=== PATIENT | female | born 1990 | race Caucasian/White ===

== ENCOUNTER 2017-07-24 09:58 | Emergency (ER) | payer MEDICAID, SELFPAY ==
[2017-07-24 09:59] VITALS: BP 129/78; PULSE 110; RESP 18; TEMP 36.8; O2SAT 99; BMI 27.3
--- NOTE | 2017-07-24 10:23 | ED.DCSUM_ITS ---
- ER Visit Summary Date of Service: 07/24/17 Chief Complaint: Left facial lesion and back pain History of Present Illness: The patient is a 27 F who noted a pimple to her left side of her face 3 days ago. Patient states she tried to pop it. She states the area keeps enlarging. She has been able to get some watery drainage from the area. Also complaining of pain to her left shoulder blade area for the past 3 days. Pain is worse with deep breath and movement. Physical Examination: Vital signs are significant for heart rate of 110, otherwise unremarkable. Patient sitting upright in bed no acute distress. She is nontoxic appearing. Head neck examination reveals a 4 x 3 cm cutaneous abscess of the left maxilla just anterior to her ear. There is a scabbed opening appreciated. There is no surrounding cellulitis. Heart is regular rate and rhythm. Lung sounds are clear. Abdomen is soft nontender. Back examination reveals mild tenderness on the medial left scapula. Extremity examination reveals strong distal pulses and normal range of motion. Test Results: [] Emergency Department Course and Treatment: She will be treated with anti- inflammatories along with Bactrim and Keflex. She was instructed to use warm compresses. Patient is to return for worsening symptoms in spite of antibiotics. Treatment Plan: [] Disposition: Discharge Impression: 1. Cutaneous abscess left face 2. Musculoskeletal back pain This note was generated with [employer] dictation software. It may contain incorrect words, spelling, and punctuation that were not noted in review of the chart prior to signing ED Disposition - Plan for ED Patient: Chief Complaint: Wound Check Referrals: Eb Mello [Primary Care Provider] -
--- NOTE | 2017-07-24 10:23 | ED.DEP ---
ED Disposition - Plan for ED Patient: Disposition: Home or Assisted Living Chief Complaint: Wound Check Instructions: ED Staph Infec Abx Tx Only Prescriptions: Cephalexin [Keflex] 500 mg PO Q6 #40 capsule Naproxen [Naprosyn] 500 mg PO BID PRN #20 tablet Smz/Tmp Ds [Bactrim Ds] 1 tablet PO BID #20 tablet Referrals: Eb Mello [Primary Care Provider] -
== END 2017-07-24 10:38 | disposition home or self-care (01) ==
PROVIDERS: Emergency Provider Emergency Medicine; Family Provider Family Medicine; PCP Family Medicine
DX: L02.01 Cutaneous abscess of face (principal); B96.89 Other specified bacterial agents as the cause of diseases classified elsewhere; M25.512 Pain in left shoulder; Z72.0 Tobacco use
CPT/HCPCS: 99282

== ENCOUNTER 2017-07-27 18:52 | Emergency (ER) | payer MEDICAID, SELFPAY ==
[2017-07-27 18:52] VITALS: BP 132/80; PULSE 105; RESP 18; TEMP 36.8; O2SAT 97; BMI 27.0
--- NOTE | 2017-07-27 19:19 | ED.VISSUMM ---
- ER Visit Summary Date of Service: 07/27/17 Chief Complaint: Facial abscess History of Present Illness: The patient is a 27 F who was seen here on the for left facial abscess. She was started on Bactrim, Keflex, warm compresses. Patient states the abscess did drain. She now has a swollen area superior to the initial abscess and right in front of her ear. She is concerned the infection may be spreading. She has had no fevers or chills and otherwise feels well. Physical Examination: Vital signs are remarkable for heart rate 105, otherwise unremarkable. Patient sitting upright in bed no acute distress. She is nontoxic appearing. Head neck examination reveals a healing cutaneous abscess of the left maxilla. Superior to this there is an area of firmness just anterior to the left ear. There is no sign of cellulitis. TM is clear. Heart is regular rate and rhythm. Lung sounds are clear. Test Results: Emergency Department Course and Treatment: Let was applied to the preauricular area. After 20 minutes 18-gauge needle was used to attend aspirate. There is no return of pus. I feel that this swollen area is her pre-ocular lymph node and there is no extension of the infection. Patient will continue her antibiotics. Treatment Plan: [] Disposition: Discharge Impression: 1. Preauricular lymph node enlargement 2. Healing facial abscess This note was generated with [employer] dictation software. It may contain incorrect words, spelling, and punctuation that were not noted in review of the chart prior to signing ED Disposition - Plan for ED Patient: Chief Complaint: Abscess Referrals: Eb Mello [Primary Care Provider] -
[2017-07-27] MEDS: Lidocaine/Epi/Tetracaine 50 ML 1 APPLIC TOPICAL (19:22)
--- NOTE | 2017-07-27 19:50 | ED.DEP ---
ED Disposition - Plan for ED Patient: Disposition: Home or Assisted Living Chief Complaint: Abscess Instructions: ED Staph Infec Abx Tx Only Referrals: Eb Mello [Primary Care Provider] - Additional Instructions: The swollen area in front of the ear represents an enlarged lymph node from your healing infection. There is no evidence of spread of infection. Continue full antibiotic course as discussed.
== END 2017-07-27 20:00 | disposition home or self-care (01) ==
PROVIDERS: Emergency Provider Emergency Medicine; Family Provider Family Medicine; PCP Family Medicine
DX: R59.0 Localized enlarged lymph nodes (principal); L02.01 Cutaneous abscess of face; B96.89 Other specified bacterial agents as the cause of diseases classified elsewhere; Z72.0 Tobacco use
CPT/HCPCS: 38300; 99282

== ENCOUNTER 2018-01-01 21:14 | Emergency (ER) | payer MEDICAID, SELFPAY ==
[2018-01-01 21:15] VITALS: BP 128/72; PULSE 85; RESP 16; TEMP 36.9; O2SAT 97; BMI 28.8
--- NOTE | 2018-01-01 23:02 | ED.VISSUMM ---
- ER Visit Summary Date of Service: 01/01/18 Chief Complaint: Acute right eye pain with blurred vision temporal visual field right eye only History of Present Illness: The patient is a 27 F who presents with intermittent severe right eye pain that she localizes in the proximity of the medial canthus. She denies any double vision or loss of vision. She reports blurred vision temporal visual field in the right eye only. She denies nausea or vomiting. She denies headache. She denies rhinorrhea, congestion, postnasal drainage. Denies sore throat. She denies any auditory symptoms. She denies trouble with speech or swallowing. There is no history of trauma. The pain is described as sharp. Physical Examination: Visual acuity is 2025 right eye 20/20 left eye 20/20 both eyes. There is no abnormality the lid, lash or lack of colitis. Pupils are equal round reactive. Extraocular muscles are intact. Sclerae anicteric. Conjunctive is not injected. Funduscopic exam reveals normal cup-to-disc ratio. There is no papilledema. There is no abnormality of the vessels. No exudate was noted. There is no hyperesthesia the infra orbital nerve. There is no evidence of preseptal cellulitis. There is no preauricular lymphadenopathy. Nares patent no discharge. No frontal, ethmoid or maxillary sinus tenderness. No facial asymmetry. Test Results: None Emergency Department Course and Treatment: Case was discussed with Dr. Lewis will see patient in the morning for formal ocular exam Treatment Plan: Outpatient ophthalmology follow-up Disposition: Discharged to home and see composition stone applicator in morning Impression: 1. Intermittent right eye pain unknown etiology 2. Blurred vision temporal field right eye only unknown etiology This note was generated with [employer] dictation software. It may contain incorrect words, spelling, and punctuation that were not noted in review of the chart prior to signing ED Disposition - Plan for ED Patient: Disposition: Home or Assisted Living Chief Complaint: Eye Problem Instructions: ED Blurred Vision Referrals: Eb Mello [Primary Care Provider] - Jung Lewis MD [STAFF PHYSICIAN] - 1 Day for another exam Additional Instructions: Call Dr. Lewis office at 8 AM tomorrow morning to be seen tomorrow
--- NOTE | 2018-01-01 23:05 | ED.DCSUM_ITS ---
- ER Visit Summary Date of Service: 01/01/18 Chief Complaint: Acute right eye pain with blurred vision temporal visual field right eye only History of Present Illness: The patient is a 27 F who presents with intermittent severe right eye pain that she localizes in the proximity of the medial canthus. She denies any double vision or loss of vision. She reports blurred vision temporal visual field in the right eye only. She denies nausea or vomiting. She denies headache. She denies rhinorrhea, congestion, postnasal drainage. Denies sore throat. She denies any auditory symptoms. She denies trouble with speech or swallowing. There is no history of trauma. The pain is described as sharp. Physical Examination: Visual acuity is 2025 right eye 20/20 left eye 20/20 both eyes. There is no abnormality the lid, lash or lack of colitis. Pupils are equal round reactive. Extraocular muscles are intact. Sclerae anicteric. Conjunctive is not injected. Funduscopic exam reveals normal cup-to-disc ratio. There is no papilledema. There is no abnormality of the vessels. No exudate was noted. There is no hyperesthesia the infra orbital nerve. There is no evidence of preseptal cellulitis. There is no preauricular lymphadenopathy. Nares patent no discharge. No frontal, ethmoid or maxillary sinus tenderness. No facial asymmetry. Test Results: None Emergency Department Course and Treatment: Case was discussed with Dr. Lewis will see patient in the morning for formal ocular exam Treatment Plan: Outpatient ophthalmology follow-up Disposition: Discharged to home and see shift production supervisor in morning Impression: 1. Intermittent right eye pain unknown etiology 2. Blurred vision temporal field right eye only unknown etiology This note was generated with [employer] dictation software. It may contain incorrect words, spelling, and punctuation that were not noted in review of the chart prior to signing ED Disposition - Plan for ED Patient: Disposition: Home or Assisted Living Chief Complaint: Eye Problem Instructions: ED Blurred Vision Referrals: Eb Mello [Primary Care Provider] - Jung Lewis MD [STAFF PHYSICIAN] - 1 Day for another exam Additional Instructions: Call Dr. Lewis office at 8 AM tomorrow morning to be seen tomorrow
[2018-01-01 23:16] VITALS: BP 125/66; PULSE 75; RESP 16; O2SAT 96
== END 2018-01-01 23:16 | disposition home or self-care (01) ==
PROVIDERS: Emergency Provider Emergency Medicine; Family Provider Family Medicine; PCP Family Medicine
DX: H57.11 Ocular pain, right eye (principal); H53.8 Other visual disturbances; Z72.0 Tobacco use
CPT/HCPCS: 99283

== ENCOUNTER 2018-06-29 13:09 | Emergency (ER) | payer MEDICAID, SELFPAY ==
[2018-06-29 13:10] VITALS: BP 121/81; PULSE 94; RESP 16; TEMP 36.5; O2SAT 94; BMI 29.1
--- NOTE | 2018-06-29 14:34 | ED.DCSUM_ITS ---
- ER Visit Summary Date of Service: 06/29/18 Chief Complaint: Upper respiratory congestion History of Present Illness: The patient is a 28 F who presents with cough, fever, and sore throat that has been getting worse over the past 4 days. Patient states she has pressure over her frontal area. Patient states this is gradually getting worse. Patient admits to subjective fevers at home. She admits to a sore throat. Patient also admits to pain in her back with coughing. Patient denies any sputum production. Patient admits to some shortness of breath. Physical Examination: Vital signs are stable. Patient is afebrile. Patient is in no acute distress. Pupils are equal, round, and reactive to light bilaterally. Extraocular muscles are intact. Tympanic membranes are clear bilateral. Nasal mucosa is congested. Oral mucosa is pink and moist. There is some mild posterior oropharyngeal erythema. There are no exudates noted. Neck is supple. Trachea is midline. There is no JVD or lymphadenopathy noted. Heart was regular rate and rhythm. Lungs are clear and equal bilaterally. Cranial nerves II through XII are intact. There are no focal motor or sensory deficits noted. Emergency Department Course and Treatment: Patient was advised that this is most likely a viral upper respiratory infection. Patient was given a prescription for Claritin-D. Patient was instructed to follow-up with her primary care physician in 5-7 days. Patient was given a note for work to be off today and tomorrow. Patient was instructed to drink plenty of fluids. Patient understood and was agreeable with the plan. All questions were answered. Disposition: Discharge home Impression: Viral upper respiratory infection This note was generated with [employer] dictation software. It may contain incorrect words, spelling, and punctuation that were not noted in review of the chart prior to signing ED Disposition - Plan for ED Patient: Disposition: Home or Assisted Living Diagnosis: Viral upper respiratory tract infection with cough Instructions: ED Upper Resp Infec No Abx Tx Prescriptions: Loratadine/Pseudoephedrine [Claritin-D 24 Hour Tablet] 1 ea PO DAILY PRN PRN #[id number] PRN Reason: Congestion Referrals: Eb Mello [Primary Care Provider] - 5-7 Days
== END 2018-06-29 14:43 | disposition home or self-care (01) ==
PROVIDERS: Emergency Provider Emergency Medicine; Family Provider Family Medicine; PCP Family Medicine
DX: J06.9 Acute upper respiratory infection, unspecified (principal); Z72.0 Tobacco use
CPT/HCPCS: 99282

== ENCOUNTER → 2018-09-09 11:36 | Outpatient (CLI) | payer MEDICAID, SELFPAY ==
[2018-09-12 12:30] LABS: HPV Reflexed? NOT INDICATED
== END ==
PROVIDERS: Family Provider Family Medicine; PCP Family Medicine; Referring Provider Obstetrics & Gynecology; Visit Provider Obstetrics & Gynecology
DX: Z12.4 Encounter for screening for malignant neoplasm of cervix (principal)
CPT/HCPCS: 88175; G0145

== ENCOUNTER → 2022-01-09 | Outpatient (CLI) | payer MEDICAID, SELFPAY ==
[2022-01-14 12:57] LABS: HPV APTIMA, High Risk Negative (Negative)
== END | disposition home or self-care (01) ==
LOC: LABSPEC 11:28
PROVIDERS: PCP Family Medicine; Visit Provider Student in an Organized Health Care Education/Training Program
DX: Z12.4 Encounter for screening for malignant neoplasm of cervix (principal)
CPT/HCPCS: 87624; 88175; G0145

== ENCOUNTER → 2022-06-01 | Outpatient (CLI) | payer MEDICAID, SELFPAY ==
[2022-06-01 16:04] LABS: Absolute Lymphocyte Count 3.19 X10^3/uL (0.83-4.51); Basophil# 0.03 X10^3/uL; Basophil% 0.3 % (0-1); Eosinophil# 0.03 X10^3/uL; Eosinophils% 0.3 % (0-5); Hematocrit 41.6 % (37-47); Hemoglobin 14.1 g/dL (12.0-15.0); Lymphocyte # 3.19 X10^3/ul (0.83-4.51); Lymphocyte % 26.8 % (19-41); Mean Corp Hgb Conc 33.9 g/dL (32-36); Mean Corpuscular Hgb 31.5 pg (27.0-32.0); Mean Corpuscular Volume 93.1 fL (81-99); Mean Platelet Vol. 9.7 fl (6.2-12.0); Monocyte# 0.66 X10^3/uL; Monocyte% 5.5 % (0-10); NRBC Flagged by Analyzer 0 % (0-5); Neutrophil # 7.97 X10^3/uL (2.7-7.7); Neutrophil % 66.8 % (47-70); Platelet Count 253 K/mm3 (150-450); RBC Distribution Width CV 12.5 % (11.6-14.6); RBC Distribution Width SD 43.1 fl (35.1-43.9); Red Blood Count 4.47 M/mm3 (4.2-5.4); White Blood Count 11.9 K/mm3 (4.4-11.0)
[2022-06-01 18:28] LABS: HIV - WCH Non-Reactive (Nonreactive); Hepatitis B Surface Antigen Non-Reactive (Nonreactive); Hepatitis C Antibody Non-Reactive (Nonreactive); Rubella IgG Reactive (Nonreactive); Syphilis Antibodies Non-reactive
[2022-06-03 09:12] LABS: V-Zoster IgG (Immunity) 958 index (Immune >165)
== END | disposition home or self-care (01) ==
LOC: WOBLAB 14:59
PROVIDERS: PCP Family Medicine; Visit Provider Obstetrics & Gynecology
DX: Z34.81 Encounter for supervision of other normal pregnancy, first trimester (principal)
CPT/HCPCS: 36415; 85025; 86703; 86762; 86780; 86787; 86803; 87086; 87088; 87340

== ENCOUNTER → 2022-10-17 | Outpatient (CLI) | payer MEDICAID, SELFPAY ==
[2022-10-17 13:57] LABS: Absolute Lymphocyte Count 3.02 X10^3/uL (0.83-4.51); Absolute Neutrophil Count 8.2 X10^3/uL (2.0-7.7); Basophil# 0.06 X10^3/uL; Basophil% 0.5 % (0-1); Eosinophil# 0.08 X10^3/uL; Eosinophils% 0.7 % (0-5); Hematocrit 36.9 % (37-47); Hemoglobin 12.2 g/dL (12.0-15.0); Lymphocyte # 3.02 X10^3/ul (0.83-4.51); Mean Corp Hgb Conc 33.1 g/dL (32-36); Mean Corpuscular Hgb 32.4 pg (27.0-32.0); Mean Corpuscular Volume 97.9 fL (81-99); Mean Platelet Vol. 9.3 fl (6.2-12.0); Monocyte# 0.66 X10^3/uL; Monocyte% 5.5 % (0-10); NRBC Flagged by Analyzer 0 % (0-5); Neutrophil # 8.16 X10^3/uL (2.7-7.7); Neutrophil % 67.4 % (47-70); Platelet Count 260 K/mm3 (150-450); RBC Distribution Width CV 12.8 % (11.6-14.6); RBC Distribution Width SD 46.1 fl (35.1-43.9); Red Blood Count 3.77 M/mm3 (4.2-5.4); White Blood Count 12.1 K/mm3 (4.4-11.0)
[2022-10-17 14:03] LABS: Glucose Challenge Gest 1H 50g 126 mg/dL (70-140)
[2022-10-17 14:31] LABS: Syphilis Antibodies Non-reactive
== END | disposition home or self-care (01) ==
LOC: WOBLAB 13:15
PROVIDERS: PCP Family Medicine; Visit Provider Nurse Practitioner Women's Health
DX: Z34.82 Encounter for supervision of other normal pregnancy, second trimester (principal)
CPT/HCPCS: 36415; 82950; 85025; 86780

== ENCOUNTER → 2022-12-19 | Outpatient (CLI) | payer MEDICAID, SELFPAY ==
[2022-12-19 13:51] LABS: Hematocrit 36.6 % (37-47); Hemoglobin 11.8 g/dL (12.0-15.0); Mean Corp Hgb Conc 32.2 g/dL (32-36); Mean Corpuscular Hgb 31.4 pg (27.0-32.0); Mean Corpuscular Volume 97.3 fL (81-99); Mean Platelet Vol. 9.3 fl (6.2-12.0); Platelet Count 253 K/mm3 (150-450); RBC Distribution Width SD 45.9 fl (35.1-43.9); Red Blood Count 3.76 M/mm3 (4.2-5.4)
== END | disposition home or self-care (01) ==
LOC: WOBLAB 13:27
PROVIDERS: PCP Family Medicine; Visit Provider Student in an Organized Health Care Education/Training Program
DX: Z34.83 Encounter for supervision of other normal pregnancy, third trimester (principal)
CPT/HCPCS: 36415; 85027; 87081

== ENCOUNTER 2023-01-15 05:30 | Inpatient (IN) | payer MEDICAID, SELFPAY ==
[2023-01-15] VITALS (19 sets, daily range): BP systolic 101–142; BP diastolic 47–70; PULSE 75–104; RESP 12–19; TEMP 36.4–36.8; O2SAT 95–98; BMI 36.6
[2023-01-15] MEDS: Lactated Ringers 1,000 ML 999 ML IV (06:20)
[2023-01-15 06:30] LABS: Absolute Neutrophil Count 7.4 X10^3/uL (2.0-7.7); Basophil# 0.05 X10^3/uL; Basophil% 0.4 % (0-1); Eosinophil# 0.08 X10^3/uL; Eosinophils% 0.7 % (0-5); Hematocrit 34.2 % (37-47); Lymphocyte % 30.9 % (19-41); Mean Corp Hgb Conc 32.2 g/dL (32-36); Mean Corpuscular Volume 99.4 fL (81-99); Mean Platelet Vol. 9.1 fl (6.2-12.0); Monocyte# 0.82 X10^3/uL; Monocyte% 6.7 % (0-10); NRBC Flagged by Analyzer 0 % (0-5); Neutrophil # 7.44 X10^3/uL (2.7-7.7); Neutrophil % 60.5 % (47-70); Platelet Count 252 K/mm3 (150-450); RBC Distribution Width CV 13.2 % (11.6-14.6); RBC Distribution Width SD 47.7 fl (35.1-43.9); Red Blood Count 3.44 M/mm3 (4.2-5.4); White Blood Count 12.3 K/mm3 (4.4-11.0)
[2023-01-15] MEDS: Sodium Citrate/Citric Acid 30 ML UDC PO (06:32)
[2023-01-15] MEDS: Acetaminophen 500 MG Tablet 1000 MG PO ×4 (06:32→23:53)
[2023-01-15] MEDS: Ondansetron 4 MG/2 ML Vial IV (07:18)
[2023-01-15] MEDS: Cefazolin 2 GM in 0.9% Normal Saline (100mL Bag) 100 ML IV (07:26)
--- NOTE | 2023-01-15 07:30 | HP.PCM.OB_ITS ---
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 Home Medications docosahexaenoic acid 200 mg capsule ( DHA) mg PO 01/02/23 [History Last Taken Unknown] Allergy/AdvReac Type Severity Reaction Status Date / Time mushroom Allergy Swelling Verified 01/15/23 06:08 Family History Father Diabetes Grandfather Diabetes Grandmother Diabetes Mother Aneurysm Colon cancer Surgical History Previous section S/P cholecystectomy S/P left knee surgery Status post colposcopy Surgical abdomen Social History Smoking Status: Current every day smoker alcohol intake: never substance use type: does not use caffeine: Yes what type of physical activity do you participate in: none seatbelt use: always do you feel safe at home: Yes additional social history: Boyfriend-Prosper History 2 Elective abortions Hx Para 1 Spontaneous abortions Hx # Term Pregnancies Ectopic pregnancies Hx # Pregnancies Multiple births # of living children 1 Past Pregnancies Del. Date Name GA/Weeks Outcome Route Bth Weight Gen Labor Lgth Anesthesia Del Locatn Provider FOB 08/29/08 Lily 39 live - full term 7lbs 13oz Male spinal [facility] Dr. Joyce Mittal Delivery Date: 08/29/08 Last Updated by: Melody Corral No issues during , went into WP due to not feeling well, baby HR dropped while on monitor had emergency csection. had ulcer rupture Visit Details Expected Delivery Route/Plan for repeat section Plans Covid status:declined Flu vaccine: declined Tdap vaccine: declined Rhogam: na LARC form signed: declined movement and labor precautions reviewed. Problem list reviewed and updated with the most current plan of care details and appropriate orders placed. Relevant counseling for the gestational age provided. Continue routine care and follow up unless otherwise noted in visit notes/problem list details OB Flowsheet Initial Weight: Not Recorded Date -?-?-?-?-?-?-?-?-?-?-?-?- EGA Weight BP Urine Prot -?-?-?-?-?-?-?-?-?-?-?-?- Glucose FHR FuHt Pres Dilation -?-?-?-?-?-?-?-?-?-?-?-?- Effaced St Visit Note 01/02/23 -?-?-?-?-?-?-?-?-?-?-?-?- 37w 1d 203 lb 8 oz 129/78 Nega tive -?-?-?-?-?-?-?-?-?-?-?-?- Negative 140 -?-?-?-?-?-?-?-?-?-?-?-?- JV- new transfer from [facility]. has h/o prior section in 2008 for fitl. h/o ruptured stomach ulcer (avoid nsaids) rpt section on saturday01/15/23 01/09/23 -?-?-?-?-?-?-?-?-?-?-?-?- 38w 1d 204 lb 2 oz 116/68 Nega tive -?-?-?--?-?-?-?-?-?-?-?-?- Negative 140 -?-?-?-?-?-?-?-?-?-?-?-?- Sm- no vb lof go od fm no regular ctx ROS Constitutional Constitutional: Denies change in weight, fatigue, fever(s), headache(s), poor appetite or weakness Eyes Eyes: Denies blurry vision, change in vision, seeing flashes or spots in vision ENT HEENT: Denies dizziness, headache(s), loss taste/smell or sore throat Cardiovascular Cardiovascular: Denies chest pain, dizziness, dyspnea, irregular heart rhythm, leg edema, palpitations, rapid heart rate or vomiting Respiratory/Chest Respiratory/Chest: Denies chest tightness, cough, dyspnea or breast pain Gastrointestinal Gastrointestinal: Denies abdominal pain, anorexia, constipation, cramping, diarrhea, hemorrhoids, vomiting or weight changes Genitourinary Genitourinary: Denies dysuria, flank pain, genital lesions, genital pain, urinary frequency or urinary urgency Musculoskeletal Musculoskeletal: Denies back pain, difficulty walking, joint pain, limited range of motion, muscle cramps or numbness Integumentary Integumentary: Denies lesions or unusual bruising Neurologic Neurologic: Denies abnormal movements, abnormal speech, dizziness, numbness, seizure-like activity or syncope Psychiatric Psychiatric: Denies anxiety, behavioral changes, change in appetite, change in libido, cognitive impairment, confusion, depression, difficulty concentrating, hallucinations or suicidal thoughts Endocrine Endocrinology: Denies excessive sweating, polydipsia or polyuria Hematologic/Lymphatic Hematologic/Lymphatic: Denies easy bleeding, easy bruising or lymphadenopathy Allergic/Immunologic Allergic/Immunologic: Denies itchy eyes, lip swelling, seasonal rhinorrhea, rhinitis, throat swelling, tongue swelling, eczemia, wheezing or asthma Vital Signs Vital Signs Vital Signs: 01/15/23 05:50 01/15/23 05:50 01/15/23 05:54 Pulse Rate 95 104 H Pulse Ox 97 01/15/23 05:54 01/15/23 06:00 01/15/23 06:00 Pulse Rate 94 Pulse Ox 97 97 Weight Weight: 206 lb 9.6 oz Body Mass Index (BMI) 36.6 Physical Exam Const alert, oriented x3, no apparent distress and healthy appearing General Appearance: cooperative; Negative for anxious HEENT normocephalic Face and Sinus: normal facial exam Eyes EOMs intact bilaterally and no scleral icterus General Eye: normal appearance of both eyes Neck full ROM and supple Lymph Lymphatic: no lymphadenopathy noted Chest Chest: abnormal inspection of the chest Resp normal respiratory effort Effort and Inspection: able to speak in complete sentences Cardio regular rate GI soft to palpation and non-tender Inspection: gravid Palpation: soft; Negative for tender Back/Spine no CVA tenderness Extremity normal to inspection, full ROM and no clubbing, cyanosis or edema General Extremity: Negative for calf tenderness or edema Skin Lesions: no lesions Rashes: no rashes Psych mental status grossly normal Labs Labs Labs: Blood Type O POSITIVE Antibody Screen Pending Hct 34.2 % (37-47) L Hgb 11.0 g/dL (12.0-15.0) L Syphilis Total Ab Non-reactive VZV IgG Antibody 958 index (Immune >165) Rubella IgG Antibody Reactive (Nonreactive) Hep Bs Antigen Non-Reactive (Nonreactive) HIV 1&2 Antibody Non-Reactive (Nonreactive) Glucose 1 Hr 50 gm 126 mg/dL (70-140) Assessment & Plan (1) Supervision of high risk in third trimester: COMMENT: PRR Girl-Mellisa Bautista. Boyfriend-Prosper GBS negative normal GCT (2) Previous section: COMMENT: 2008, RLTCS scheduled for 01/15 with JV (3) : QUALIFIERS: Weeks of gestation: 38 weeks Qualified Code(s): Z3A.38 - 38 weeks gestation of PLAN: Plan plan for eras rpt section
--- NOTE | 2023-01-15 08:16 | OP.PCM_ITS ---
Assessment & Plan (1) Supervision of high risk in third trimester: COMMENT: PRR Girl-Mellisa Bautista. Boyfriend-Prosper GBS negative normal GCT (2) Previous section: COMMENT: 2008, RLTCS scheduled for 01/15 with KatV (3) : QUALIFIERS: Weeks of gestation: 38 weeks Qualified Code(s): Z3A.38 - 38 weeks gestation of Maternal Data Information SACHI Calculator Estimated Delivery Date Method Current WG Current Estimate 01/22/23 LMP (Certain) 39w 0d Final SACHI Source: LMP Details Operative Information Date of Procedure: 01/15/23 Pre-Operative Diagnosis: 32 y/o @ 39 weeks 0 days, scheduled repeat section Post-Operative Diagnosis: 32 y/o @ 39 weeks 0 days, scheduled repeat section Classification: Scheduled Procedure Type: low transverse tail sawyer #1: Olaf Monsalve tail sawyer #2: Ml Harrington Type of Anesthesia: General Antibiotic Given: Ancef 2 grams IV x1 Estimated Blood Loss: 400cc Findings Description of Procedure: The patient was brought to the operating room, spinal anesthesia was found to be adequate. She was prepped and draped in the normal sterile fashion and was placed in a dorsal supine position with a leftward tilt. Pfannenstiel skin incision was made with a scalpel and carried through to the underlying layers. The fascia was nicked in the midline and extended laterally using Johnson scissors. The anterior aspect of the fascia was grasped with Samaria clamps and the underlying rectus muscles dissected off using the Metzenbaum scissors. The inferior aspect the fascia was also grasped with Samaria clamps and the underlying rectus muscle dissected off with the Metzenbaum scissors. The rectus muscles were in the midline. Peritoneum was entered sharply. The uterus was identified and a bladder blade was inserted into the abdomen. Bladder flap was created off the uterus using Metzenbaum scissors. A transverse incision was made with a scalpel and extended laterally manually. The 's head was grasped with the help of my project construction assistant manager and fundal pressure the infant was delivered through the uterine incision without difficulty. The mouth and nares were bulb suctioned. After a 30 second delay the cord was clamped and cut. The end was handed off to the awaiting emergency medicine specialist for routine assessment. Placenta was delivered manually without difficulty. The uterus was exteriorized and cleared of all clots and debris. Incision was closed with an 0 Vicryl suture in a running locked fashion. Second layer of 1-0 monocryl suture was used in imbricating manner to create excellent closure and hemostasis. The uterus was returned to the abdomen. The gutters were cleared of all clots and debris. The peritoneum was closed in a pursestring pattern using a 3-0 Vicryl suture. This muscle was reapproximated with a 3-0 Vicryl. The fascia was closed with an stratafix suture. Subcutaneous tissue layer was closed using a plain gut suture. The skin was closed with a 4-0 Monocryl subcuticular stitch. The skin was also sealed with surgical glue. The patient tolerated the procedure well sponge lap and needle counts were correct at each tissue closure plane and the patient is now being brought to the recovery room in stable condition Presentation: Positive for Vertex Amniotic Membrane Rupture Type: Artificial Amniotic Fluid Description: Clear Placental Delivery Description: Manual Removal Placenta Disposition: [facility] Cord Vessel Description: 3 Vessels Cord Entanglement: None Infant A Gender: Female (1 minute): 9 (5 minute): 9 Delayed Cord Clamping: Yes Complications Risks of Surgery Discussed w/Patient: Bleeding, Anesthesia Risks, Infection, Need for Future C-Sections and Injury to surrounding structure(s) including bowel and bladder Multi Select Codes Urinary/Genital Urinary/Genital CPT Codes: 02032 Delivery [facility]
--- NOTE | 2023-01-15 08:27 | DCINST_ITS ---
Discharge Instructions Diet Discharge Diet: No restrictions Activity Discharge Activity: May Not Drive (for 2 weeks or while taking narcotic pain medications.), May Shower and May Take a Tub Bath (in 7 days.) May resume sexual activity in: 4-6 weeks Weight Bearing Status: Full weight bearing Lifting Restrictions: 20 pounds Dressing / Incision Call your doctor if your incision/area has: Continuous Slow Oozing, Sudden Increased Bleeding, Increased Pain/ Swelling, Increased Redness and Foul Smelling Discharge Call your doctor if you observe: Fever of 101 or Higher and Using more than 1 pad per hour Suture Line Care: Avoid Pulling/Pushing and Avoid Pinching/Bending Cleanse incision/area with: Soap & Water and Keep Dressing Clean & Dry Follow Up Care Please Follow Up With: Caitlyn Zavaleta DO When: Call [phone] to make an appointment for an incision check in 1-2 weeks. Test Results: Test results from this visit will be discussed in further detail at your follow- up appointment, if applicable. Discharge Plan Admission Admit Date/Time: 01/15/23 05:30 Primary Reason for Your Visit: section Attending Provider: Caitlyn Zavaleta Primary Care Provider: Eb Mello Discharge Orders/Prescriptions Prescriptions: New naproxen 500 mg tablet 500 mg PO BID PRN (Reason: pain) Qty: 30 0RF No Action DHA 200 mg capsule PO Referrals / Follow Up: Eb Mello MD [Primary Care Provider] - Disposition Disposition (needs filled in before D/C Order can be placed): Home, Self Care
[2023-01-15] MEDS: Oxytocin 15 Units/NS 250ml 15 UNITS/250 ML IV.SOLN 83 UNITS IV (08:40)
[2023-01-15 08:53] LABS: Syphilis Antibodies Non-reactive
[2023-01-15] MEDS: Ketorolac 30 MG/ML Syringe IV ×3 (09:20→20:36)
[2023-01-15] MEDS: Senna/Docusate Sodium 1 Tablet PO (10:28)
[2023-01-15] MEDS: Lactated Ringers 1,000 ML 100 ML IV (11:40)
[2023-01-15] MEDS: 0.9% Saline Lock 10 ML Syringe IV ×2 (14:54→20:36)
[2023-01-15] MEDS: Enoxaparin 40 MG/0.4 ML Syringe SC (20:36)
[2023-01-16] MEDS: SimETHICONE 80 MG Chewable Tablet PO ×2 (04:39→23:20)
[2023-01-16] MEDS: Ketorolac 30 MG/ML Syringe IV (04:39)
[2023-01-16] MEDS: 0.9% Saline Lock 10 ML Syringe IV (04:39)
[2023-01-16 04:43] VITALS: BP 132/68; PULSE 81; RESP 16; TEMP 36.6; O2SAT 97
[2023-01-16] MEDS: Acetaminophen 500 MG Tablet 1000 MG PO ×4 (05:52→23:20)
[2023-01-16 06:07] LABS: Hematocrit 29.7 % (37-47); Hemoglobin 9.7 g/dL (12.0-15.0); Mean Corp Hgb Conc 32.7 g/dL (32-36); Mean Corpuscular Hgb 32.2 pg (27.0-32.0); Mean Corpuscular Volume 98.7 fL (81-99); Mean Platelet Vol. 8.9 fl (6.2-12.0); Platelet Count 218 K/mm3 (150-450); RBC Distribution Width CV 13.2 % (11.6-14.6); RBC Distribution Width SD 47.1 fl (35.1-43.9); Red Blood Count 3.01 M/mm3 (4.2-5.4); White Blood Count 14.4 K/mm3 (4.4-11.0)
[2023-01-16 07:58] VITALS: BP 116/60; PULSE 83; RESP 16; TEMP 36.3; O2SAT 96
--- NOTE | 2023-01-16 08:01 | PCM.PN.OB ---
Subjective Subjective Patient doing well without complaints. Tolerating PO. Ambulating and voiding without difficulty. Feeding well. Denies chest pain, shortness of breath, calf pain/swelling, fevers, chills, lightheadedness. Objective Data Objective Data Vital Signs: Vital Signs Temp Pulse Resp BP Pulse Ox O2 Del Method 97.8 F 81 16 132/68 H 97 Room Air 01/16/23 04:43 01/16/23 04:43 01/16/23 04:43 01/16/23 04:43 01/16/23 04:43 01/16/23 04:43 Oxygen Delivery Method Room Air Weight: 206 lb 9.6 oz Body Mass Index (BMI) 36.6 Intake & Output: Intake and Output for Last 24 Hours 01/14/23 01/15/23 01/16/23 23:59 23:59 23:59 Intake Total 2238.33 / 2238.33 Output Total 2300 / 2300 Balance -61.67 / -61.67 Lab / Micro Data 01/16/23 06:00 Labs: Laboratory Results - last 24 hr 01/15/23 06:30: Syphilis Total Ab Non-reactive, Blood Type O POSITIVE, Antibody Screen NEGATIVE 01/16/23 06:00: WBC 14.4 H, RBC 3.01 L, Hgb 9.7 L, Hct 29.7 L, MCV 98.7, MCH 32.2 H, MCHC 32.7, RDW Std Deviation 47.1 H, RDW Coeff of Farzaneh 13.2, Plt Count 218, MPV 8.9 Physical Exam Const alert and oriented x3 HEENT normocephalic Eyes PERRL Neck full ROM Resp normal respiratory effort GI soft to palpation GI Narrative: FF below U. Dressing dry and intact Palpation: tender other (appropriately) Assessment & Plan (1) Delivery by section: COMMENT: R LTCS JV 01/15/23 Mellisa PLAN: Plan s/p LTCS PPD # 1 1. routine post care 2. bottle feeding- support given 3. rh positive 4. rubella immune
[2023-01-16] MEDS: Senna/Docusate Sodium 1 Tablet PO (12:12)
[2023-01-16 14:10] VITALS: BP 122/61; PULSE 100; RESP 16; TEMP 36.9; O2SAT 97
[2023-01-16] MEDS: oxyCODONE 5 MG Tablet PO ×3 (14:10→23:37)
[2023-01-16 20:03] VITALS: BP 133/69; PULSE 87; RESP 17; TEMP 36.8; O2SAT 98
[2023-01-16] MEDS: Enoxaparin 40 MG/0.4 ML Syringe SC (21:37)
--- NOTE | 2023-01-16 23:40 | NURSING ---
Significant other came out to nurses station to discuss pts pain level. RN went to room to discuss with pt. Upon entering room, pt tearful and lying in bed. Pt states her pain is 7/10, located on her abdomen, and is aching/cramping. Fundus is firm, at Umbilicus, bleeding is scant, and abdomen is soft. Pt currently using heating pad, abdominal binder, receiving tylenol Q6 hours, and oxyir prn. Pt offered simethicone for gas pain and another 5 mg of oxyir. Pt states she will take both but that the oxyir just makes her fall asleep. RN also offered a warm shower and pt agreed to it. RN will reassess pain level after warm shower and 30 minutes after oxyir was given.
[2023-01-17] MEDS: cycloBENZAPRine HCl 10 MG Tablet PO ×2 (01:46→08:59)
[2023-01-17] MEDS: Ibuprofen 600 MG Tablet PO ×2 (01:46→08:59)
[2023-01-17 01:49] VITALS: BP 125/68; PULSE 95; RESP 18; TEMP 36.6; O2SAT 97
[2023-01-17] MEDS: Acetaminophen 500 MG Tablet 1000 MG PO (05:15)
--- NOTE | 2023-01-17 07:59 | PCM.PN.OB ---
Subjective Subjective Patient doing well without complaints. Tolerating PO. Ambulating and voiding without difficulty. Feeding well. Denies chest pain, shortness of breath, calf pain/swelling, fevers, chills, lightheadedness. Objective Data Objective Data Vital Signs: Vital Signs Temp Pulse Resp BP Pulse Ox O2 Del Method 97.8 F 95 18 125/68 H 97 Room Air 01/17/23 01:49 01/17/23 01:49 01/17/23 01:49 01/17/23 01:49 01/17/23 01:49 01/17/23 01:49 Oxygen Delivery Method Room Air Weight: 206 lb 9.6 oz Body Mass Index (BMI) 36.6 Intake & Output: Intake and Output for Last 24 Hours 01/15/23 01/16/23 01/17/23 23:59 23:59 23:59 Intake Total 2238.33 / 2238.33 Output Total 2300 / 2300 Balance -61.67 / -61.67 Lab / Micro Data 01/16/23 06:00 Physical Exam Const alert and oriented x3 General Appearance: cooperative and comfortable HEENT normocephalic Eyes PERRL Neck full ROM Resp normal respiratory effort GI soft to palpation GI Narrative: FF below U. Dressing dry and intact Palpation: tender other (appropriately) Assessment & Plan (1) Delivery by section: COMMENT: Manuela MCGRATH 01/15/23 Mellisa PLAN: Plan s/p LT PPD # 2 1. routine post care 2. bottle feeding- support given 3. rh positive 4. rubella immune 5. probably home today
[2023-01-17] MEDS: Senna/Docusate Sodium 1 Tablet PO (08:59)
[2023-01-17 09:42] VITALS: BP 120/57; PULSE 81; RESP 16; TEMP 36.7
== END 2023-01-17 12:15 | disposition home or self-care (01) | DRG 540 ==
PROVIDERS: Admitting Provider Obstetrics & Gynecology; PCP Family Medicine; Referring Provider Obstetrics & Gynecology; Visit Provider Obstetrics & Gynecology
PROC: 10D00Z1 Extraction of Products of Conception, Low, Open Approach (ICD-10-PCS; CPT 59514; principal; 2023-01-15 07:15)
DX: O34.211 Maternal care for low transverse scar from previous cesarean delivery (principal); F17.200 Nicotine dependence, unspecified, uncomplicated; O99.334 Smoking (tobacco) complicating childbirth; Z37.0 Single live birth; Z3A.39 39 weeks gestation of pregnancy
CPT/HCPCS: 59025; 59050; 85025; 85027; 86780; 86850; 86900; 86901; 99221; 99252; J7120; A4216; G0378; G0463; J2405